=== PATIENT | female | born 1970 | race Caucasian/White ===

== ENCOUNTER 2017-11-04 18:59 | Emergency (ER) | payer OTHER ==
[~2017-11-04] VITALS: Ht 167.6 cm; Wt 72.6 kg
[2017-11-04 20:20] VITALS: BP 157/107
[2017-11-04] MEDS ORDERED: TORADOL IM STA (20:26)
[2017-11-04] MEDS ORDERED: NORFLEX IM STA (20:26)
[2017-11-04] MEDS ORDERED: NORFLEX ONE (20:27)
[2017-11-04] MEDS ORDERED: TORADOL ONE (20:27)
--- NOTE | 2017-11-04 20:35 | ER.PDOC ---
General Chief Complaint: Neck/Upper back Pain Stated Complaint: LEFT SIDE NECK/SHOULDER PAIN Time seen by MD: 20:28 Source: patient Exam Limitations: no limitations History of Present Illness Initial Comments Left neck and shoulder pain for 1 week after lifting boxes Timing/Duration: week (1) Severity/Quality: moderate Method of Injury: lifting Associated Symptoms: muscle spasms Allergies: Coded Allergies: No Known Allergies (Unverified , 11/04/17) Past Medical History Medical History: no pertinent history Surgical History: LMP (females 10-50): hysterectomy Social History Smoking: non-smoker Alcohol Use: none Drug Use: none Review of Systems Constitutional: no symptoms reported EENTM: no symptoms reported Respiratory: no symptoms reported Cardiovascular: no symptoms reported Gastrointestinal: no symptoms reported Musculoskeletal: see HPI All Other Systems: Reviewed and Negative Physical Exam General Appearance: No Apparent Distress, WD/WN HEENT: PERRL/EOMI, Normal ENT Inspection, TMs Normal, Pharynx Normal Neck: Tender Lateral (left) Cardiovascular/Respiratory: Regular Rate, Rhythm, No M/R/G, Normal Peripheral Pulses, No JVD, Normal Breath Sounds, No Respiratory Distress Gastrointestinal: Normal Bowel Sounds, No Organomegaly, No Pulsatile Mass, Non Tender, Soft Back: Normal Inspection, No CVA Tenderness, No Vertebral Tenderness 1 - tender Extremities: Pain With Movement (left shoulder), Tenderness (left upper back) Neuro/Psych: Alert, manager export nml/symmetrical, mood/effect nml, No Motor/Sensory Deficits, Relexes nml Skin: Normal Color, Warm/Dry Departure Time of Disposition: 20:31 Disposition: 01 HOME, SELF-CARE Impression: Primary Impression: Neck pain Additional Impression: Shoulder pain, left Qualified Codes: M25.512 - Pain in left shoulder Condition: Stable Referrals: LUKE MAYER [facility]TR[facility] MANAGER-C (PCP) PRIMARY CARE PROVIDER Additional Instructions: Tramadol Flexeril Ibuprofen F/U with your PCP in 3-4 days Duration or Time Spent with Pa: 60 mins DEBBI VALIENTE MD Nov 04, 2017 20:35
[2017-11-04 21:04] VITALS: BP 157/107
--- NOTE | 2017-11-05 00:42 | PCM.EKG ---
[facility] Test Date: 2017-11-04 Test Time: 20:41:11 Pat Name: LELE TOURE Department: Room: Gender: F Hospital Supervisor: KWESI : 1970 Requested By: DEBBI VALIENTE Order Number: [id number] Reading MD: David Dick Measurements Intervals [place] Rate: 87 P: 68 WY: 184 QRS: 76 QRSD: 84 T: 60 QT: 380 QTc: 457 Interpretive Statements Normal sinus rhythm Normal ECG No previous ECG available for comparison Electronically Signed On 11-05-2017 10:39:59 CDT by David Dick Please click the below link to view image of tracing.
== END 2017-11-04 21:00 | disposition home or self-care (01) ==
LOC: ER 18:59
DX: M54.2 Cervicalgia (principal); M25.512 Pain in left shoulder; M54.6 Pain in thoracic spine; X50.0XXA Overexertion from strenuous movement or load, initial encounter; Y93.89 Activity, other specified; Y92.89 Other specified places as the place of occurrence of the external cause; Y99.8 Other external cause status
CPT/HCPCS: 93005; 96372 ×2; 99284; J1885; J2360

== ENCOUNTER 2019-08-06 06:08 | Emergency (ER) | payer OTHER ==
[~2019-08-06] VITALS: Ht 167.6 cm; Wt 68.0 kg
[2019-08-06 06:14] VITALS: BP 216/134
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
[2019-08-06] MEDS ORDERED: LACTATED RINGERS 1,000 ML ONE (06:34)
[2019-08-06] MEDS ORDERED: LACTATED RINGERS 1,000 ML IV STA (06:34)
[2019-08-06] MEDS ORDERED: ATIVAN IV STA (06:34)
[2019-08-06] MEDS ORDERED: ATIVAN ONE (06:34)
[2019-08-06 06:37] LABS: ABG PCO2 44.1 mmHg (35.0-45.0); ABG PH 7.344 (7.350-7.450); BE(B) -2.3 mmol/L (-2.0-2.0); HCO3act 23.5 mmol/L (22.0-26.0); pO2 424.9 mmHg (80.0-100.0)
[2019-08-06 06:38] LABS: BASOPHIL # 0.1 10^3/uL (0.0-0.1); BASOPHIL % 0.5 % (0.0-0.2); EOSINOPHIL # 0.5 10^3/uL (0.0-0.2); HEMOGLOBIN 11.7 g/dL (12.0-15.0); LYMPHOCYTES % 16.2 % (24.0-44.0); MEAN CELL HGB 26.5 pg (26-34); MEAN CELL HGB CONCENTRATION 32.1 g/dL (33-37); MEAN CORP VOLUME 82.5 fL (78-100); MONOCYTES # 1.1 10^3/uL (0.3-0.8); MONOCYTES % 8.8 % (5.0-12.0); NEUTROPHIL # 8.9 10^3/uL (1.8-7.7); NEUTROPHILS % 70.3 % (41.0-85.0); RED CELL DISTRIBUTION WIDTH 16.1 % (11.5-14.5); WHITE BLOOD CELL 12.6 10^3/uL (4.5-11.0)
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
[2019-08-06 06:52] LABS: CALCIUM 8.9 mg/dL (8.4-10.5); CARBON DIOXIDE 24.3 mmol/L (20.0-32)
[2019-08-06] MEDS ORDERED: ATIVAN IM STA (06:55)
[2019-08-06 07:00] VITALS: BP 198/132
--- NOTE | 2019-08-06 07:22 | PCM.EKG ---
[facility] Test Date: 2019-08-06 Test Time: 07:20:04 Pat Name: LELE TOURE Department: Room: Gender: F [place] Man: TB : 1970 Requested By: DEBBI VALIENTE Order Number: [id number] Reading MD: Debbi VALIENTE Measurements Intervals [place] Rate: 98 P: 88 NH: 210 QRS: 76 QRSD: 100 T: 16 QT: 384 QTc: 491 Interpretive Statements Sinus rhythm Prolonged NH interval Left atrial enlargement Left ventricular hypertrophy Borderline prolonged QT interval Compared to ECG 11/04/2017 20:41:11 First degree AV block now present Atrial abnormality now present Left ventricular hypertrophy now present Electronically Signed On 08-09-2019 23:11:54 [employer] by Debbi VALIENTE Please click the below link to view image of tracing.
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
[2019-08-06] MEDS ORDERED: ZESTRIL ONE (07:45)
[2019-08-06] MEDS ORDERED: ZESTRIL PO STA (07:51)
[2019-08-06 08:03] VITALS: BP 177/117
== END 2019-08-06 08:08 | disposition home or self-care (01) ==
LOC: ER 06:08
DX: T59.811A Toxic effect of smoke, accidental (unintentional), initial encounter (principal); S16.1XXA Strain of muscle, fascia and tendon at neck level, initial encounter; F41.1 Generalized anxiety disorder; F43.0 Acute stress reaction; V89.0XXA Person injured in unspecified motor-vehicle accident, nontraffic, initial encounter; Y93.89 Activity, other specified; Y92.89 Other specified places as the place of occurrence of the external cause; Y99.8 Other external cause status
CPT/HCPCS: 36415; 36600; 70450; 71045; 72125; 80053; 82803; 85025; 93005; 96372; 99285; J2060; J7120

== ENCOUNTER 2021-06-26 10:48 | Emergency (ER) | payer BC ==
[~2021-06-26] VITALS: Ht 167.6 cm; Wt 83.9 kg
[2021-06-26 11:01] VITALS: BP 190/114
[2021-06-26 11:09] VITALS: BP 190/114
--- NOTE | 2021-06-26 11:22 | ER.PDOC ---
General Chief Complaint: General Complaint Stated Complaint: SOB,FATIGUE,WEAKNESS TRAVEL OUT OF US: No Time seen by MD: 11:16 Source: patient Exam Limitations: no limitations History of Present Illness Initial Comments This is a 51-year-old female who comes to the emergency department complaining of nausea, vomiting and hematemesis on . She is also feeling very weak and fatigued. She states she was taking some extra iron because in the past she has had anemia and she feels the same way now. Severity: moderate Associated Symptoms: cough, fever/chills, shortness of breath Allergies: Coded Allergies: No Known Allergies (Unverified , 11/04/17) Past Medical History Medical History: hypertension, other Surgical History: hysterectomy Social History Alcohol Use: none Drug Use: none Review of Systems Constitutional: chills, fever, malaise, weakness EENTM: no symptoms reported Respiratory: cough, shortness of breath Cardiovascular: no symptoms reported Gastrointestinal: abdominal pain, nausea, vomiting Genitourinary: no symptoms reported Musculoskeletal: muscle pain, muscle stiffness Skin: no symptoms reported Psychiatric/Neurological: no symptoms reported Hematologic/Lymphatic: no symptoms reported Immunological/Allergic: no symptoms reported All Other Systems: Reviewed and Negative Physical Exam General Appearance: Mild Distress EENT: nml ENT inspection Neck: Full Range of Motion, Supple, Normal Inspection Respiratory: lungs clear, normal breath sounds, no respiratory distress CVS: reg rate & rhythm, no murmur, no gallop Gastrointestinal: Normal Bowel Sounds, No Organomegaly, No Pulsatile Mass, Tenderness (Mild tenderness to palpation in the epigastrium. No rebound or guarding.) Back: Normal Inspection Extremities: Normal Range of Motion Neurologic/Psychiatric: No Motor/Sensory Deficits, Alert, Normal Mood/Affect, Oriented x 3 Skin: Normal Color Lymphatic: No Adenopathy Results/Orders Results/Orders Orders - BRANDAN DAVIS MD Cbc With Auto Diff (06/26/21 11:22) Comprehensive Metabolic Panel (06/26/21 11:22) Helicobacter Pylori (06/26/21 11:22) Covid19 Antigen Vi Sonia (06/26/21 12:29) Vital Signs Date Time Temp Pulse Resp B/P (MAP) Pulse Ox O2 Delivery O2 Flow Rate FiO2 06/26/21 11:09 98.8 104 24 190/114 (139) 99 Room Air 06/26/21 11:01 98.8 104 24 99 06/26/21 11:01 98.8 104 24 Laboratory Tests Test 06/26/21 11:47 White Blood Count 11.4 10^3/uL (4.5-11.0) H Red Blood Count 2.71 10^6/uL (4.00-5.20) L Hemoglobin 6.7 g/dL (12.0-15.0) L Hematocrit 23.8 % (36.0-46.0) L Mean Corpuscular Volume 87.8 fL (78-100) Mean Corpuscular Hemoglobin 24.7 pg (26-34) L Mean Corpuscular Hemoglobin Concent 28.2 g/dL (33-36.5) L Red Cell Distribution Width 17.5 % (11.5-14.5) H Platelet Count 267 10^3/uL (150-400) Mean Platelet Volume 8.9 fL (7.8-11.0) Neutrophils (%) (Auto) 69.0 % (41.0-85.0) Lymphocytes (%) (Auto) 16.1 % (24.0-44.0) L Monocytes (%) (Auto) 6.9 % (5.0-12.0) Neutrophils # (Auto) 7.9 10^3/uL (1.8-7.7) H Lymphocytes # (Auto) 1.84 10^3/uL1 (1.0-4.8) Monocytes # (Auto) 0.8 10^3/uL (0.3-0.8) Absolute Immature Granulocyte (auto 0.03 10^3 u/L (0-2) Absolute Eosinophils (auto) 0.8 10^3/uL (0.0-0.2) H Immature Granulocytes % 0.30 % (0.00-0.50) Eosinophils % 6.8 % (0.0-5.0) H Basophils % 0.9 % (0.0-0.2) H Basophils # 0.1 10^3/uL (0.0-0.1) Sodium Level 140 mmol/L (132-145) Potassium Level 3.8 mmol/L (3.6-5.2) Chloride Level 107.0 mmol/L (96-109) Carbon Dioxide Level 23.0 mmol/L (20.0-32) Anion Gap 13.8 Blood Urea Nitrogen 39 mg/dL (7-18) H Creatinine 2.20 mg/dL (0.59-1.40) *H Estimated GFR () 28.4 (>/=60) Est GFR (CKD-EPI)(Non-Afr Bangladeshi) 23.4 (>/=60) BUN/Creatinine Ratio 17.0 Glucose Level 105 mg/dL (70-110) Calcium Level 8.7 mg/dL (8.4-10.5) Total Bilirubin 0.4 mg/dL (0.2-1.0) Aspartate Amino Transferase (AST) 18 U/L (0-35) Alanine Aminotransferase (ALT) 43 U/L (12-78) Alkaline Phosphatase 91 U/L (50-136) Total Protein 7.3 g/dL (6.4-8.2) Albumin 2.8 g/dL (3.4-5.0) L Globulin 4.5 Albumin/Globulin Ratio 0.622 Helicobacter pylori Screen NEGATIVE (NEGATIVE) ER DEPART Departure Time of Disposition: 12:30 Disposition: 01 HOME / SELF CARE / HOMELESS Impression: Primary Impression: Dehydration Condition: Stable Patient Instructions: Dehydration, Adult Referrals: LUKE MAYERC (PCP) PRIMARY CARE PROVIDER Additional Instructions: Make sure to drink plenty of fluids, take Zofran as needed for nausea Comments A prescription for Zofran was given to the patient. Duration or Time Spent with Pa: Unknown Return to Work/School Can a patient return to work?: No Can a patient return to school: No BRANDAN DAVIS MD Jun 26, 2021 11:22
[2021-06-26 11:52] LABS: BASOPHIL # 0.1 10^3/uL (0.0-0.1); BASOPHIL % 0.9 % (0.0-0.2); EOSINOPHIL # 0.8 10^3/uL (0.0-0.2); EOSINOPHIL % 6.8 % (0.0-5.0); LYMPHOCYTES # 1.84 10^3/uL1 (1.0-4.8); LYMPHOCYTES % 16.1 % (24.0-44.0); MEAN CORP HGB 24.7 pg (26-34); MONOCYTES # 0.8 10^3/uL (0.3-0.8); MONOCYTES % 6.9 % (5.0-12.0); NEUTROPHIL # 7.9 10^3/uL (1.8-7.7); PLATELET COUNT 267 10^3/uL (150-400); RED CELL DISTRIBUTION WIDTH 17.5 % (11.5-14.5)
[2021-06-26 12:16] LABS: CALCIUM 8.7 mg/dL (8.4-10.5)
--- NOTE | 2021-06-26 12:50 | NUR ---
LABS DR. DAVIS NOTIFIED OF HEMOGLOBIN OF 6.7 AND CREATININE OF 2.2. VERBALIZED UNDERSTANDING ON BOTH LABS WITH NEW ORDER FOR CXR. DISCUSSED PREVIOUS HEMOGLOBIN AND CREATININE FROM LAST VISIT WITH DR. DAVIS. DR. DAVIS VERBALIZED UNDERSTANDING.
--- NOTE | 2021-06-26 13:10 | DIREP ---
PROCEDURE:CHEST 1 VIEW COMPARISON:[facility], CR, XRAY CHEST SINGLE VW, 08/06/2019, 07:08 AM. INDICATIONS:sob FINDINGS: LUNGS/PLEURA:Moderately extensive diffuse interstitial infiltrates are present throughout both lungs. No dense consolidation. No pleural effusion. VASCULATURE:Normal. Unremarkable pulmonary vasculature. CARDIAC:The cardiac silhouette is enlarged but may be accentuated by AP portable technique. MEDIASTINUM:Normal. No visible mass or adenopathy. BONES:Lower cervical fusion hardware OTHER:Negative. CONCLUSION:Moderately extensive diffuse interstitial infiltrates present throughout both lungs. No dense consolidation or pleural effusion. Dictated by: Niranjan Barahona MD on 06/26/2021 at 01:08 PM
[2021-06-26 13:20] VITALS: BP 165/89
== END 2021-06-26 13:20 | disposition home or self-care (01) ==
LOC: ER 10:48
DX: E86.0 Dehydration (principal); I10 Essential (primary) hypertension; Z20.822 Contact with and (suspected) exposure to COVID-19; Z90.710 Acquired absence of both cervix and uterus
CPT/HCPCS: 71045; 80053; 85025; 86677; 87426; 99284